=== PATIENT | female | born 1985 | race Caucasian/White ===

== ENCOUNTER 2019-02-14 16:31 | Emergency (ER) | payer MEDICAID ==
[~2019-02-14] VITALS: Ht 157.5 cm; Wt 81.6 kg
[2019-02-14 16:35] VITALS: BP_SYST 136
--- NOTE | 2019-02-14 16:40 | NUR ---
Patient triaged and placed in waiting room. VSS and patient appears in no acute distress at this time. Accompanied by friend, awaiting available bed, and MD notified of need for MSE.
--- NOTE | 2019-02-14 18:34 | NUR ---
Patient to ER bed 02 for evaluation. Side rails up. Report given to Bill ALICIA.
--- NOTE | 2019-02-14 18:40 | NUR ---
Patient awake, alert, oriented x 4. Patient came in compaining of 5/10 left hand aching pain since yesterday. Patient reports turning a table and hitting it. Patient states pain upon palpation. Slight swelling noted. No signs or symptoms of distress noted.
[2019-02-14] MEDS ORDERED: ASPIRIN 81 MG TAB.CHEW PO ONE (18:45)
--- NOTE | 2019-02-14 19:05 | NUR ---
Endorsement Endorsed bedside report to Aracelis ALICIA using SBAR approach for continuation of care.
--- NOTE | 2019-02-14 19:36 | NUR ---
Patient given written and verbal discharge instructions and verbalizes understanding. ER MD discussed with patient the results and treatment provided. Patient in stable condition. ID arm band removed. Rx of naprosyn given. Patient educated on pain management and to follow up with PMD. Pain Scale 0/10. Opportunity for questions provided and answered. Medication side effect fact sheet provided.
[2019-02-14 19:38] VITALS: BP_SYST 136
== END 2019-02-14 19:36 | disposition home or self-care (01) ==
LOC: SED 16:31
DX: S60.222A Contusion of left hand, initial encounter (principal); R03.0 Elevated blood-pressure reading, without diagnosis of hypertension; W22.8XXA Striking against or struck by other objects, initial encounter; Y93.89 Activity, other specified; Y92.89 Other specified places as the place of occurrence of the external cause; Y99.8 Other external cause status
CPT/HCPCS: 99284